=== PATIENT | male | born 1985 | race Caucasian/White ===

== ENCOUNTER 2016-06-15 17:21 | Emergency (ER) | payer SELFPAY ==
[~2016-06-15] VITALS: Ht 172.7 cm; Wt 65.9 kg
[~2016-06-15 17:21] MED LIST: BUPR150T3 PO; QUET1TAB65 PO
[2016-06-15 17:24] VITALS: BP 131/69; PULSE 68; RESP 14; TEMP 98; O2SAT 98
== END 2016-06-15 21:41 | disposition left against medical advice (07) ==
LOC: NED 17:21
DX: Z53.21 Procedure and treatment not carried out due to patient leaving prior to being seen by health care provider (principal)
CPT/HCPCS: 99281

== ENCOUNTER 2016-07-27 09:18 | Emergency (ER) | payer SELFPAY ==
[~2016-07-27] VITALS: Ht 172.7 cm; Wt 69.5 kg
[2016-07-27 09:30] VITALS: BP 109/59; PULSE 83; PULSE 85; PULSE 97; RESP 18; TEMP 98.2; O2SAT 100; O2SAT 99
[2016-07-27] MEDS ORDERED: SODIUM CHLOR 0.9% 1000 ML INJ 1,000 ML IV ONE (09:55)
[2016-07-27] MEDS ORDERED: SODIUM CHLORIDE 0.9% FLUSH 10 ML FLUSH IVF PRN (10:00)
--- NOTE | 2016-07-27 10:14 | PD ---
HPI Chief Complaint: Alcohol/Drug Intoxication Time Seen by Provider: 09:38 Travel History International Travel<30 days: No Contact w/Intl Traveler<30days: No Traveled to known affect area: No History of Present Illness HPI This is a 31-year-old male who presents to the emergency department having reportedly been found vomiting by someone noting that he was vomiting bright blue material that looked like miracle grow. The patient says that he use drugs and mentions K2 and spice. He denies drinking anything blue. He is a poor historian and is quite somnolent. 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) Chemotherapy: Yes (CHILDHOOD) Diabetes: No Diminished Hearing: No Tetanus Vaccination: Unknown Influenza Vaccination: No (UNKNOWN) Past Surgical History Abdominal Surgery: Yes (ABDOMINAL SURGERY) Other Surgery: Yes (IN CHILDHOOD RELATED TO LUKEMIA COMLICATIONS) Social History Alcohol Use: Yes Tobacco Use: Yes (1-2 PPD) Substance Use: Yes Allergies-Medications (Allergen,Severity, Reaction): Coded Allergies: Strattera (Verified Adverse Reaction, Intermediate, HYPERTENSION, 07/27/16) Reported Meds & Prescriptions Reported Meds & Active Scripts Active No Active Prescriptions or Reported Medications Review of Systems ROS Limitations: Intoxication Physical Exam Narrative GENERAL:Well appearing, no acute distress SKIN: Warm and dry. HEAD: Atraumatic. Normocephalic. EYES: Pupils 3 mm equal and reactive. No injection or drainage. ENT: Moist mucous membranes NECK: Trachea midline. CARDIOVASCULAR: Regular rate and rhythm. No murmur appreciated. RESPIRATORY: Clear to auscultation. Breath sounds equal bilaterally. GASTROINTESTINAL: Abdomen soft, non-tender, nondistended. Midline abdominal scar. MUSCULOSKELETAL: No obvious deformities. NEUROLOGICAL: Awake and answers questions but is quite somnolent. No obvious cranial nerve deficits. Moves all extremities. Data Data Last Documented VS Vital Signs Date Time Temp Pulse Resp B/P Pulse Ox O2 Delivery O2 Flow Rate FiO2 07/27/16 11:00 72 16 99/48 98 Room Air 07/27/16 09:30 98.2 Orders Electrocardiogram (07/27/16 09:55) Complete Blood Count With Diff (07/27/16 09:55) Comprehensive Metabolic Panel (07/27/16 09:55) Osmolality,Serum (07/27/16 09:55) Urinalysis - C+S If Indicated (07/27/16 09:55) Iv Access Insert/Monitor (07/27/16 09:55) Ecg Monitoring (07/27/16 09:55) Oximetry (07/27/16 09:55) Sodium Chloride 0.9% Flush (Ns Flush) (07/27/16 10:00) Sodium Chlor 0.9% 1000 Ml Inj (Ns 1000 M (07/27/16 09:55) Drug Screen, Random Urine (07/27/16 09:55) Alcohol (Ethanol) (07/27/16 09:55) Salicylates (Aspirin) (07/27/16 09:55) Tylenol (Acetaminophen) (07/27/16 09:55) Labs Laboratory Tests Test 07/27/16 07/27/16 10:05 11:05 White Blood Count 8.6 TH/MM3 Red Blood Count 4.66 MIL/MM3 Hemoglobin 14.5 GM/DL Hematocrit 43.0 % Mean Corpuscular Volume 92.3 FL Mean Corpuscular Hemoglobin 31.0 PG Mean Corpuscular Hemoglobin 33.6 % Concent Red Cell Distribution Width 13.7 % Platelet Count 271 TH/MM3 Mean Platelet Volume 8.6 FL Neutrophils (%) (Auto) 74.9 % Lymphocytes (%) (Auto) 18.8 % Monocytes (%) (Auto) 5.6 % Eosinophils (%) (Auto) 0.0 % Basophils (%) (Auto) 0.7 % Neutrophils # (Auto) 6.4 TH/MM3 Lymphocytes # (Auto) 1.6 TH/MM3 Monocytes # (Auto) 0.5 TH/MM3 Eosinophils # (Auto) 0.0 TH/MM3 Basophils # (Auto) 0.1 TH/MM3 CBC Comment DIFF FINAL Differential Comment Serum Osmolality 338 MOSM/KG Salicylates Level 1.8 MG/DL Sodium Level 144 MEQ/L Potassium Level 4.5 MEQ/L Chloride Level 109 MEQ/L Carbon Dioxide Level 24.9 MEQ/L Anion Gap 10 MEQ/L Blood Urea Nitrogen 15 MG/DL Creatinine 1.05 MG/DL Estimat Glomerular Filtration 82 ML/MIN Rate Random Glucose 85 MG/DL Calcium Level 7.6 MG/DL Total Bilirubin 0.2 MG/DL Aspartate Amino Transf 22 U/L (AST/SGOT) Alanine Aminotransferase 27 U/L (ALT/SGPT) Alkaline Phosphatase 65 U/L Total Protein 6.4 GM/DL Albumin 3.9 GM/DL Acetaminophen Level 2.8 MCG/ML Ethyl Alcohol Level 155 MG/DL MDM Medical Decision Making Medical Screen Exam Complete: Yes Emergency Medical Condition: Yes Interpretation(s) EKG: Normal sinus rhythm with no ST changes, normal intervals No leukocytosis Osmolality is high but anion gap and bicarbonate are normal side doubt a toxic alcohol ingestion EtOH is 155 Differential Diagnosis Alcohol intoxication, toxic alcohol intoxication, drug intoxication, acetaminophen overdose, salicylate overdose Narrative Course This is a 31-year-old male who presents to the emergency department having used drugs and alcohol prior to arrival. His alcohol level is 155. His other labs are reassuring. Patient will be observed until sober and can be discharged home. Diagnosis Primary Impression: Acute alcohol intoxication Qualified Code: F10.120 - Acute alcohol intoxication, uncomplicated Patient Instructions: General Instructions Additional Instructions: Follow up with Monique Cm in regards to psychiatric or substance related issues at: [address] [place], [place] [id number] Med/Other Pt SpecificInfo: No Change to Meds Scripts No Active Prescriptions or Reported Meds Disposition: 01 DISCHARGE HOME Marie Connor MD Jul 27, 2016 10:14
[2016-07-27 10:29] LABS: AUTOMATED NEUTROPHIL # 6.4 TH/MM3 (1.8-7.7); BASOPHIL # 0.1 TH/MM3 (0-0.2); BASOPHIL % 0.7 % (0.0-2.0); HEMO FLAGS DIFF FINAL; LYMPH % 18.8 % (9.0-44.0); LYMPHOCYTE # 1.6 TH/MM3 (1.0-4.8); MEAN CELL VOLUME 92.3 FL (80.0-100.0); MEAN CORPUSCULAR HGB CONC 33.6 % (32.0-36.0); MONO % 5.6 % (0.0-8.0); NEUT % 74.9 % (16.0-70.0); PLATELET COUNT 271 TH/MM3 (150-450); RED BLOOD COUNT 4.66 MIL/MM3 (4.50-5.90); RED CELL DISTRIBUTION WIDTH 13.7 % (11.6-17.2); WHITE BLOOD COUNT 8.6 TH/MM3 (4.0-11.0)
[2016-07-27 11:00] VITALS: BP 99/48; PULSE 72; RESP 16; O2SAT 98
[2016-07-27 11:43] LABS: BLOOD UREA NITROGEN 15 MG/DL (7-18); GLOMERULAR FILTRATION RATE 82 ML/MIN (>89)
[2016-07-27 11:44] LABS: ALT (GPT) 27 U/L (12-78); ANION GAP 10 MEQ/L (5-15); AST (GOT) 22 U/L (15-37); BICARBONATE 24.9 MEQ/L (21.0-32.0); CHLORIDE 109 MEQ/L (98-107); POTASSIUM 4.5 MEQ/L (3.5-5.1); SODIUM (NA) 144 MEQ/L (136-145)
[2016-07-27 11:46] LABS: ACETAMINOPHEN 2.8 MCG/ML (10.0-30.0); ALKALINE PHOSPHATASE 65 U/L (45-117); TOTAL BILIRUBIN ADULT 0.2 MG/DL (0.2-1.0)
[2016-07-27 12:00] VITALS: BP 105/58; PULSE 68; RESP 16; O2SAT 98
--- NOTE | 2016-07-28 22:18 | EKG ---
Date Performed: 07/27/2016 Time Performed: 10:14:45 PTAGE: 31 years EKG: Sinus rhythm Since previous tracing, no significant change noted NORMAL ECG PREVIOUS TRACING : 11/16/2009 22.14 DOCTOR: Toña Daniels Interpretating Date/Time 07/28/2016 22:16:34
== END 2016-07-27 14:15 | disposition home or self-care (01) ==
LOC: NEPA 09:18
DX: F10.129 Alcohol abuse with intoxication, unspecified (principal); F17.210 Nicotine dependence, cigarettes, uncomplicated; F19.90 Other psychoactive substance use, unspecified, uncomplicated
CPT/HCPCS: 80053; 80307; 83930; 85025; 93005; 96360; 99284; J7030

== ENCOUNTER 2016-08-01 14:16 | Emergency (ER) | payer SELFPAY ==
[~2016-08-01] VITALS: Ht 172.7 cm; Wt 70.0 kg
[2016-08-01 14:19] VITALS: BP 115/70; PULSE 96; RESP 17; TEMP 98.2; O2SAT 98
--- NOTE | 2016-08-01 15:26 | PD ---
HPI Chief Complaint: Psychiatric Symptoms Time Seen by Provider: 15:26 Travel History International Travel<30 days: No Contact w/Intl Traveler<30days: No Traveled to known affect area: No History of Present Illness HPI 31-year-old male presents to the emergency department voluntarily for psychiatric evaluation. Patient states he has a history of depression. He has been drinking alcohol all day. Has been having thoughts of suicide. Patient states he has attempted in the past with no current attempts. States he has thought about suicide by hanging. Denies any acute medical needs. No other symptoms to report. 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) Chemotherapy: Yes (CHILDHOOD) Diabetes: No Diminished Hearing: No Past Surgical History Abdominal Surgery: Yes (ABDOMINAL SURGERY) Other Surgery: Yes (IN CHILDHOOD RELATED TO LUKEMIA COMLICATIONS) Social History Alcohol Use: Yes Tobacco Use: Yes (1-2 PPD) Substance Use: Yes Allergies-Medications (Allergen,Severity, Reaction): Coded Allergies: Strattera (Verified Adverse Reaction, Intermediate, HYPERTENSION, 08/01/16) Reported Meds & Prescriptions Reported Meds & Active Scripts Active No Active Prescriptions or Reported Medications Review of Systems Except as stated in HPI: all other systems reviewed are Neg Physical Exam Narrative GENERAL: Well-nourished, well-developed male patient, seemingly intoxicated, but no acute distress SKIN: Focused skin assessment warm/dry. HEAD: Normocephalic. EYES: No scleral icterus. No injection or drainage. NECK: Supple, trachea midline. No JVD or lymphadenopathy. CARDIOVASCULAR: Regular rate and rhythm without murmurs, gallops, or rubs. RESPIRATORY: Breath sounds equal bilaterally. No accessory muscle use. GASTROINTESTINAL: Abdomen soft, non-tender, nondistended. MUSCULOSKELETAL: No cyanosis, or edema. BACK: Nontender without obvious deformity. No CVA tenderness. Data Data Last Documented VS Vital Signs Date Time Temp Pulse Resp B/P Pulse Ox O2 Delivery O2 Flow Rate FiO2 08/01/16 15:28 18 08/01/16 14:19 98.2 96 115/70 98 Orders Psych Screen (08/01/16 15:26) Complete Blood Count With Diff (08/01/16 16:07) Basic Metabolic Panel (Bmp) (08/01/16 16:07) Drug Screen, Random Urine (08/01/16 16:07) Alcohol (Ethanol) (08/01/16 16:07) Labs Laboratory Tests Test 08/01/16 08/01/16 16:17 18:00 White Blood Count 6.1 TH/MM3 Red Blood Count 4.45 MIL/MM3 Hemoglobin 14.0 GM/DL Hematocrit 41.3 % Mean Corpuscular Volume 92.7 FL Mean Corpuscular Hemoglobin 31.5 PG Mean Corpuscular Hemoglobin 33.9 % Concent Red Cell Distribution Width 13.1 % Platelet Count 253 TH/MM3 Mean Platelet Volume 7.5 FL Neutrophils (%) (Auto) 47.7 % Lymphocytes (%) (Auto) 40.7 % Monocytes (%) (Auto) 9.3 % Eosinophils (%) (Auto) 1.4 % Basophils (%) (Auto) 0.9 % Neutrophils # (Auto) 2.9 TH/MM3 Lymphocytes # (Auto) 2.5 TH/MM3 Monocytes # (Auto) 0.6 TH/MM3 Eosinophils # (Auto) 0.1 TH/MM3 Basophils # (Auto) 0.1 TH/MM3 CBC Comment DIFF FINAL Differential Comment Sodium Level 144 MEQ/L Potassium Level 4.0 MEQ/L Chloride Level 110 MEQ/L Carbon Dioxide Level 28.1 MEQ/L Anion Gap 6 MEQ/L Blood Urea Nitrogen 9 MG/DL Creatinine 1.01 MG/DL Estimat Glomerular Filtration 86 ML/MIN Rate Random Glucose 95 MG/DL Calcium Level 8.3 MG/DL Ethyl Alcohol Level 182 MG/DL Urine Opiates Screen NEG Urine Barbiturates Screen NEG Urine Amphetamines Screen NEG Urine Benzodiazepines Screen NEG Urine Cocaine Screen NEG Urine Cannabinoids Screen NEG MDM Medical Decision Making Medical Screen Exam Complete: Yes Emergency Medical Condition: Yes Medical Record Reviewed: Yes Differential Diagnosis Mood disorder versus personality disorder versus adjustment reaction disorder versus intoxication Narrative Course 31-year-old male presents to emergency department for evaluation. Patient clinically intoxicated with slurred speech and strong smell of alcohol on his breath. CBC and BMP are without acute concern. Toxicology is negative. EtOH is 182. Patient is medically cleared to undergo psychiatric screening for further evaluation and disposition. Mental health screening discussed with the patient. Psychiatric screen ordered. Diagnosis Primary Impression: Acute alcohol intoxication Qualified Code: F10.120 - Acute alcohol intoxication, uncomplicated Additional Impression: Substance induced mood disorder Scripts No Active Prescriptions or Reported Meds Condition: Stable Pema Vivar Aug 01, 2016 15:26
[2016-08-01 16:51] LABS: AUTOMATED NEUTROPHIL # 2.9 TH/MM3 (1.8-7.7); BASOPHIL # 0.1 TH/MM3 (0-0.2); BASOPHIL % 0.9 % (0.0-2.0); EOSINOPHIL # 0.1 TH/MM3 (0-0.4); EOSINOPHIL % 1.4 % (0.0-4.0); HEMATOCRIT 41.3 % (39.0-51.0); HEMO FLAGS DIFF FINAL; LYMPH % 40.7 % (9.0-44.0); LYMPHOCYTE # 2.5 TH/MM3 (1.0-4.8); MEAN CELL VOLUME 92.7 FL (80.0-100.0); MEAN CORPUSCULAR HEMOGLOBIN 31.5 PG (27.0-34.0); MEAN CORPUSCULAR HGB CONC 33.9 % (32.0-36.0); MONO % 9.3 % (0.0-8.0); NEUT % 47.7 % (16.0-70.0); PLATELET COUNT 253 TH/MM3 (150-450); RED BLOOD COUNT 4.45 MIL/MM3 (4.50-5.90); RED CELL DISTRIBUTION WIDTH 13.1 % (11.6-17.2); WHITE BLOOD COUNT 6.1 TH/MM3 (4.0-11.0)
[2016-08-01 17:07] LABS: BICARBONATE 28.1 MEQ/L (21.0-32.0)
[2016-08-01 18:30] LABS: AMPHETAMINE, URINE NEG (NEG); BARBITURATES, URINE NEG (NEG); COCAINE, URINE NEG (NEG)
[2016-08-01 19:05] VITALS: BP 108/58; PULSE 75; RESP 16; O2SAT 99
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
== END 2016-08-02 10:00 | disposition home or self-care (01) ==
LOC: NEPA 14:16
DX: F10.120 Alcohol abuse with intoxication, uncomplicated (principal); F19.94 Other psychoactive substance use, unspecified with psychoactive substance-induced mood disorder; F17.200 Nicotine dependence, unspecified, uncomplicated; Z86.59 Personal history of other mental and behavioral disorders; Z85.6 Personal history of leukemia
CPT/HCPCS: 80048; 80307; 85025; 99285